=== PATIENT | female | born 1990 | race Two or more races ===

== ENCOUNTER 2017-03-16 10:56 | Emergency (ER) | payer MEDICAID ==
[~2017-03-16 10:56] MED LIST: ANALPRAM HC 1%30 GM RC; B12; BENTYL10 M1 PO; DICYCLOMINE HCL10 MG PO; FERROUS SULFAT325 MG PO; IBUPROFEN600 M1 PO; IBUPROFEN800 M1 PO; IRON PO; IRON325 MG PO; LO LOESTRIN FE1 EAC1 PO; MOTRIN800 MG PO; NORCO 5-325 TA1 EACH PO; NORCO 5/325 TAB1 TAB PO; OCELLA 3 MG-0.1 EACH PO; OCELLA TABLET1 EACH PO; PERCOCET 5/3251 TAB PO; PRENATAL1 EACH PO; PROAIR HFA8.5 GM IH; PROTONIX40 MG PO; SURFAK240 M1 PO; TYLENOL EXTRA500 M1 PO; TYLENOL325 M2 PO; VIBRAMYCIN100 M1 PO; VICODIN 5/500 T1 TAB PO; VITAMIN C PO; VITAMIN D2000 UNIT PO; ZANTAC PO; ZOFRAN ODT4 MG/UDTAB PO; ZOFRAN4 M2 PO; [UNRECOGNIZED DRUG - CODE] PO
[2017-03-16] MEDS ORDERED: DICYCLOMINE HCL20 M1 PO (12:00)
[2017-03-16] MEDS ORDERED: ZOFRAN ODT4 MG PO (12:01)
[2017-03-16 12:02] LABS: URINE APPEARANCE CLEAR; URINE BILIRUBIN NEGATIVE (NEG); URINE BLOOD NEGATIVE (NEG); URINE COLOR YELLOW; URINE GLUCOSE (UA) NEGATIVE (NEG); URINE KETONE NEGATIVE (NEG); URINE LEUKOCYTE ESTERASE NEGATIVE (NEG); URINE NITRITE NEGATIVE (NEG); URINE PROTEIN NEGATIVE (NEG)
[2017-03-16 12:03] LABS: BASO % 0.6 % (0-2); EOSINOPHIL ABSOLUTE COUNT 0.2 tho/cmm (0.0-0.7); HGB-HEMOGLOBIN 11.6 gm/dl (12.0-15.5); LYMPH % 38.5 % (20-45); LYMPH ABSOLUTE COUNT 1.4 tho/cmm (0.8-4.5); MCH (MEAN CORPUSCULAR HGB) 28.4 pg (28.0-32.0); MCHC MEAN CORPUSCULAR HGB CONC 34.1 % (32.0-36.0); MCV (MEAN CELL VOLUME) 83.3 fl (82.0-96.0); MEAN PLATELET VOLUME 9.3 cmc (9.4-12.4); MONO % 9.8 % (0-12); MONOCYTE ABSOLUTE COUNT 0.4 tho/cmm (0.0-1.2); NEUTROPHIL ABSOLUTE COUNT 1.7 tho/cmm (1.6-8.0); NEUTROPHIL-AUTOMATED 1.7 tho/cmm (1.6-8.0); NEUTROPHILS % 46.1 % (40-80); PLATELET COUNT 206 tho/cmm (150-450); RED BLOOD COUNT 4.08 mil/cmm (4.00-5.20); RED CELL DISTRIBUTION WIDTH 12.8 % (12.4-16.4); WHITE BLOOD COUNT 3.6 tho/cmm (4.0-10.0)
[2017-03-16 12:15] LABS: ANION GAP 10 mmol/L (0-20); BLOOD UREA NITROGEN 12 mg/dl (6-24); CALCIUM 8.9 mg/dl (8.5-10.5); CARBON DIOXIDE-VENOUS 28 mmol/L (22-32); CHLORIDE 109 mmol/l (96-110); CREATININE 0.55 mg/dl (0.50-1.10); GLUCOSE 84 mg/dL (70-110); POTASSIUM 4.3 mmol/L (3.7-5.1); SODIUM 143 mmol/L (135-145); eGFR VALUE FOR BLACK >90 mL/Min
[2017-03-16 12:19] LABS: PREGNANCY-SERUM NEGATIVE (NEGATIVE)
[2017-04-25] MEDS ORDERED: PRENATAL-U CAPS1 CAP PO (19:14)
[2017-05-08] MEDS ORDERED: FEOSOL325 M1 PO (19:01)
== END 2017-03-16 12:40 ==
LOC: EDMED 10:56
PROVIDERS: Physician Assistant
DX: R11.2 Nausea with vomiting, unspecified (principal); Z98.890 Other specified postprocedural states